=== PATIENT | female | born 1985 | race Caucasian/White ===

== ENCOUNTER 2020-09-14 12:37 | Emergency (ER) | payer OTHER ==
[~2020-09-14] VITALS: Ht 160 cm; Wt 103.7 kg
[2020-09-14] MEDS ORDERED: ONDANSETRON PF 4 MG/2 ML VIAL. IVP ONE (13:30)
[2020-09-14] MEDS ORDERED: KETOROLAC 15 MG/ML VIAL. IVP ONE (13:30)
[2020-09-14] MEDS ORDERED: IV NORMAL SALINE 1,000ML 1,000 ML IV ONE (13:30)
[2020-09-14 13:46] LABS: BASO % 0 % (0-3); EOS # 0.1 x10^3/uL (0.0-0.7); EOS % 1 % (0-3); HEMATOCRIT 41.4 % (36.0-47.0); HEMOGLOBIN 14.3 g/dL (12.0-15.5); LYMPH # 1.8 x10^3/uL (1.0-4.8); LYMPH % 16 % (24-48); MEAN CORPUSCULAR HEMOGLOBIN 32 pg (25-35); MEAN CORPUSCULAR HGB CONC 35 g/dL (31-37); MEAN CORPUSCULAR VOLUME 93 fL (79-100); MONO # 0.5 x10^3/uL (0.0-1.1); MONO % 5 % (0-9); NEUT # 8.4 x10^3uL (1.8-7.7); NEUT % 78 % (31-73); PLATELET COUNT 216 x10^3/uL (140-400); RED BLOOD COUNT 4.46 x10^6/uL (3.50-5.40); WHITE BLOOD COUNT 10.8 x10^3/uL (4.0-11.0)
[2020-09-14 13:49] LABS: CALCIUM 8.5 mg/dL (8.5-10.1); GFR 63.1; POTASSIUM 3.9 mmol/L (3.5-5.1)
[2020-09-14 13:53] LABS: BILIRUBIN,URINE NEG (NEG); CLARITY,URINE CLEAR; COLOR,URINE YELLOW; GLUCOSE,URINE NEG (NEG); NITRITE,URINE NEG (NEG); UROBILINOGEN,URINE 0.2 mg/dL (0.2 mg/dL)
[2020-09-14 13:54] LABS: BACTERIA,URINE 0 /HPF (0-FEW); RBC,URINE OCC /HPF (0-2); SQUAMOUS EPITHELIAL CELL,UR OCC /LPF; WBC,URINE 0 /HPF (0-4)
[2020-09-14 13:55] LABS: ALBUMIN 3.5 g/dL (3.4-5.0); ALBUMIN/GLOBULIN RATIO 0.9 (1.0-1.7); TOTAL BILIRUBIN 0.7 mg/dL (0.2-1.0); TOTAL PROTEIN 7.3 g/dL (6.4-8.2)
--- NOTE | 2020-09-14 14:00 | RAD ---
CT scan abdomen and pelvis without contrast 09/14/2020 CLINICAL HISTORY: Right flank pain. TECHNIQUE: Unenhanced, contiguous, 2.5 mm axial sections were obtained through the abdomen and pelvis . One or more of the following individualized dose reduction techniques were utilized for this study: 1. Automated exposure control. 2. Adjustment of the mA and/or kV according to patient size. 3. Use of iterative reconstruction technique. FINDINGS: Images through the lung bases demonstrate minimal dependent subsegmental atelectasis bilate rally. The liver, spleen, pancreas, and adrenal glands are within normal limits. No renal or ureteral calculus is seen. There is no evidence of obstruction of either collecting syste m. The abdominal aorta tapers normally. The gallbladder is slightly contracted. Increased attenuation is seen within the dependent portions of the gallbladder which may reflect noncalcified gallstones vers us gallbladder sludge. No free fluid or free air is seen within the abdomen. There is no evidence of bowel obstruction. The appendix is within normal limits. Images through the pelvis demonstrate the urinary bladder to be slightly contracted. An IUD is seen w ithin the expected location of the endometrial canal of the uterus. Calcifications are seen within th e right pelvis consistent with phleboliths. No adnexal mass is seen. No free fluid is noted. Minimal S-shaped curvature of the thoracolumbar spine is seen. IMPRESSION: No acute abnormality is seen. Electronically signed by: Tomasz Gomez MD (09/14/2020 1:57 PM) [id number]
[2020-09-14 14:27] VITALS: BP 108/63
[2020-09-14] MEDS ORDERED: CYCL5TAB PO (14:37)
[2020-09-14] MEDS ORDERED: IBUP800T19 PO (14:37)
--- NOTE | 2020-09-14 14:37 | PHYS DOC ---
Past History Past Medical History: Kidney Stones Past Surgical History: Other Additional Past Surgical Histo: lithrotripsy Alcohol Use: None General Adult EDM: Chief Complaint: FLANK PAIN HPI: HPI: Patient is a 35-year-old female coming in for right back and flank pain, also complaining of midthoracic pain. Patient states the pain started around 9 in the morning little while she eaten. Patient states she was sitting on the couch at the time of the pain. Patient states the pain comes and goes and is sharp. Took some Advil for the pain. Has had some nausea when the pain gets worse. No diarrhea or constipation. Patient states she does have a history of a kidney stone that required stenting. States she otherwise been well denies any cough or chest pain. Review of Systems: Review of Systems: All other systems within normal limits except for as noted in the HPI Current Medications: Current Meds: Current Medications Medications (Trade) Dose Ordered Sig/Jadon Start Time Stop Time Status Last Admin Dose Admin Fentanyl Citrate (Fentanyl 2ml Vial) 75 mcg 1X ONCE 09/14/20 13:30 09/14/20 13:55 DC 09/14/20 13:59 75 MCG Ketorolac Tromethamine (Toradol 15mg Vial) 15 mg 1X ONCE 09/14/20 13:30 09/14/20 13:55 DC 09/14/20 13:58 15 MG Ondansetron HCl (Zofran) 4 mg 1X ONCE 09/14/20 13:30 09/14/20 13:55 DC 09/14/20 13:57 4 MG Sodium Chloride 1,000 ml @ 1,000 mls/hr 1X ONCE 09/14/20 13:30 09/14/20 14:29 DC 09/14/20 13:57 1,000 MLS/HR Allergies: Allergies: Allergies Coded Allergies Type Severity Reaction Last Updated Verified No Known Drug Allergies 09/14/20 No Physical Exam: PE: Constitutional: Well developed, well nourished, no acute distress, non-toxic appearance. [] HENT: Normocephalic, atraumatic, bilateral external ears normal, nose normal. [] Eyes: PERRLA, conjunctiva normal, no discharge. [] Neck: No rigidity, supple, no stridor. [] Cardiovascular: Regular rate and rhythm, brisk cap refill [] Lungs & Thorax: Non labored symmetric respirations, no tachypnea or respiratory distress [] Abdomen: Soft, nondistended. Skin: Warm, dry, no erythema, no rash. [] Back: Unremarkable, tenderness over lower thoracic spine and right CVA tenderness. Extremities: No deformities, range of motion grossly intact, no lower extremity edema [] Neurologic: Alert and oriented X 3, no focal deficits noted. [] Psychologic: Affect normal, judgement normal, mood normal. [] Current Patient Data: Labs: Laboratory Tests Test 09/14/20 12:51 09/14/20 13:03 09/14/20 13:15 Urine Collection Type Unknown Urine Color Yellow Urine Clarity Clear Urine pH 7.0 Urine Specific [place] 1.025 Urine Protein Neg (NEG-TRACE) Urine Glucose (UA) Neg mg/dL (NEG) Urine Ketones (Stick) Neg mg/dL (NEG) Urine Blood Neg (NEG) Urine Nitrite Neg (NEG) Urine Bilirubin Neg (NEG) Urine Urobilinogen Dipstick 0.2 mg/dL (0.2 mg/dL) Urine Leukocyte Esterase Neg (NEG) Urine RBC Occ /HPF (0-2) Urine WBC 0 /HPF (0-4) Urine Squamous Epithelial Cells Occ /LPF Urine Bacteria 0 /HPF (0-FEW) POC Urine HCG, Qualitative hcg negative (Negative) White Blood Count 10.8 x10^3/uL (4.0-11.0) Red Blood Count 4.46 x10^6/uL (3.50-5.40) Hemoglobin 14.3 g/dL (12.0-15.5) Hematocrit 41.4 % (36.0-47.0) Mean Corpuscular Volume 93 fL (79-100) Mean Corpuscular Hemoglobin 32 pg (25-35) Mean Corpuscular Hemoglobin Concent 35 g/dL (31-37) Red Cell Distribution Width 13.0 % (11.5-14.5) Platelet Count 216 x10^3/uL (140-400) Neutrophils (%) (Auto) 78 % (31-73) H Lymphocytes (%) (Auto) 16 % (24-48) L Monocytes (%) (Auto) 5 % (0-9) Eosinophils (%) (Auto) 1 % (0-3) Basophils (%) (Auto) 0 % (0-3) Neutrophils # (Auto) 8.4 x10^3uL (1.8-7.7) H Lymphocytes # (Auto) 1.8 x10^3/uL (1.0-4.8) Monocytes # (Auto) 0.5 x10^3/uL (0.0-1.1) Eosinophils # (Auto) 0.1 x10^3/uL (0.0-0.7) Basophils # (Auto) 0.0 x10^3/uL (0.0-0.2) Sodium Level 139 mmol/L (136-145) Potassium Level 3.9 mmol/L (3.5-5.1) Chloride Level 105 mmol/L (98-107) Carbon Dioxide Level 22 mmol/L (21-32) Anion Gap 12 (6-14) Blood Urea Nitrogen 12 mg/dL (7-20) Creatinine 1.0 mg/dL (0.6-1.0) Estimated GFR (Cockcroft-Gault) 63.1 BUN/Creatinine Ratio 12 (6-20) Glucose Level 133 mg/dL (70-99) H Calcium Level 8.5 mg/dL (8.5-10.1) Total Bilirubin 0.7 mg/dL (0.2-1.0) Aspartate Amino Transferase (AST) 276 U/L (15-37) H Alanine Aminotransferase (ALT) 202 U/L (14-59) H Alkaline Phosphatase 55 U/L (46-116) Total Protein 7.3 g/dL (6.4-8.2) Albumin 3.5 g/dL (3.4-5.0) Albumin/Globulin Ratio 0.9 (1.0-1.7) L Vital Signs: Vital Signs Date Time Temp Pulse Resp B/P (MAP) Pulse Ox O2 Delivery O2 Flow Rate FiO2 09/14/20 12:51 98.5 88 18 151/82 (105) 99 Room Air EKG: EKG: [] Radiology/Procedures: Radiology/Procedures: PROCEDURE: CT ABDOMEN PELVIS WO CONTRAST CT scan abdomen and pelvis without contrast 09/14/2020 CLINICAL HISTORY: Right flank pain. TECHNIQUE: Unenhanced, contiguous, 2.5 mm axial sections were obtained through the abdomen and pelvis. One or more of the following individualized dose reduction techniques were utilized for this study: 1. Automated exposure control. 2. Adjustment of the mA and/or kV according to patient size. 3. Use of iterative reconstruction technique. FINDINGS: Images through the lung bases demonstrate minimal dependent subsegmental atelectasis bilaterally. The liver, spleen, pancreas, and adrenal glands are within normal limits. No renal or ureteral calculus is seen. There is no evidence of obstruction of either collecting system. The abdominal aorta tapers normally. The gallbladder is slightly contracted. I ncreased attenuation is seen within the dependent portions of the gallbladder which may reflect noncalcified gallstones versus gallbladder sludge. No free fluid or free air is seen within the abdomen. There is no evidence of bowel obstruction. The appendix is within normal limits. Images through the pelvis demonstrate the urinary bladder to be slightly contracted. An IUD is seen within the expected location of the endometrial canal of the uterus. Calcifications are seen within the right pelvis consistent with phleboliths. No adnexal mass is seen. No free fluid is noted. Minimal S-shaped curvature of the thoracolumbar spine is seen. IMPRESSION: No acute abnormality is seen. [] Heart Score: C/O Chest Pain: No Risk Factors: Risk Factors: DM, Current or recent (<one month) smoker, HTN, HLP, family history of CAD, obesity. Risk Scores: Score 0 - 3: 2.5% MACE over next 6 weeks - Discharge Home Score 4 - 6: 20.3% MACE over next 6 weeks - Admit for Clinical Observation Score 7 - 10: 72.7% MACE over next 6 weeks - Early Invasive Strategies Course & Med Decision Making: Course & Med Decision Making Pertinent Labs and Imaging studies reviewed. (See chart for details) Labs and CT unremarkable, no evidence of kidney stone, due to location of pain we will treat as muscle spasm. [] Dragon Disclaimer: Dragon Disclaimer: This electronic medical record was generated, in whole or in part, using a voice recognition dictation system. Departure Departure: Impression: Primary Impression: Spasm of thoracic back muscle Disposition: HOME / SELF CARE / HOMELESS Condition: STABLE Referrals: JAMES POLK MD (PCP) Patient Instructions: Back Pain, Adult Scripts Ibuprofen (IBUPROFEN) 800 Mg Tablet 1 TAB PO TID PRN for PAIN for 10 Days, #30 TAB 1 Refill Prov: APRIL RADER MD 09/14/20 Cyclobenzaprine Hcl (CYCLOBENZAPRINE HCL) 5 Mg Tablet 1 TAB PO TID PRN PRN for MUSCLE SPASMS for 5 Days, #15 TAB Prov: APRIL RADER MD 09/14/20 APRIL RADER MD Sep 14, 2020 14:37
== END 2020-09-14 15:03 | disposition home or self-care (01) ==
LOC: ER 12:37
DX: M62.830 Muscle spasm of back (principal); M54.6 Pain in thoracic spine; R10.9 Unspecified abdominal pain; Z87.442 Personal history of urinary calculi
CPT/HCPCS: 36415; 74176; 80053; 81001; 81025; 85025; 96361; 96374; 96375; 99284; J1885; J2405; J3010; J7030